=== PATIENT | male | born 1950 | race Caucasian/White ===

== ENCOUNTER 2018-05-21 15:54 | Observation (INO) | payer MEDICARE ==
[~2018-05-21] VITALS: Ht 182.9 cm; Wt 67.7 kg
--- NOTE | ~2018-05-21 | MORECARE ---
CASE MANAGEMENT DISCHARGE SUMMARY PATIENT: TAVON JEAN UNIT: [id number] ADM DATE: 05/21/18 AGE: 67 : 51 SEX: M ROOM/BED: D.2224 AUTHOR: CÉSAR SHIELDS PHYSICIAN: REFERRING PHYSICIAN: KEELY WATKINS MD DATE OF SERVICE: 05/22/18 Discharge Plan Patient Name: TAVON JEAN [facility] [facility] 1950 Planned Disposition: Anticipated Discharge Date: Discharge Date: Expected LOS: Initial Reviewer: [email or web address] Initial Review Date: 05/21/2018 Generated: 05/22/18 4:58 pm Patient Name: TAVON JEAN Page [id number] at 1558 All edits/amendments must be made on the electronic document DICTATION DATE: 05/22/181556 RUBY DEVELOPER: JOHNNIE 05/22/181556 RPT#: [id number] DC DATE: STATUS: ADM IN [facility] [address] [place] [address] END OF REPORT
--- NOTE | ~2018-05-21 | MORECARE ---
CASE MANAGEMENT DISCHARGE SUMMARY PATIENT: TAVON JEAN UNIT: [id number] ADM DATE: 05/21/18 AGE: 67 : 51 SEX: M ROOM/BED: D.2224 AUTHOR: CÉSAR SHIELDS PHYSICIAN: REFERRING PHYSICIAN: KEELY WATKINS MD DATE OF SERVICE: 05/23/18 Discharge Plan Patient Name: TAVON JEAN [facility] [facility] 1950 Planned Disposition: Anticipated Discharge Date: Discharge Date: Expected LOS: Initial Reviewer: [email or web address] Initial Review Date: 05/21/2018 Generated: 05/23/18 3:59 pm Last DP export: 05/22/18 2:58 Patient Name: TAVON JEAN Page [id number] at 1455 All edits/amendments must be made on the electronic document DICTATION DATE: 05/23/181457 PAPERBACK MACHINE OPERATOR: JOHNNIE 05/23/181457 RPT#: [id number] DC DATE: STATUS: ADM IN [facility] [address] [place] [address] END OF REPORT
--- NOTE | ~2018-05-21 | CN ---
PATIENT NAME:TAVON QUEEN MEDICAL RECORD: [id number] : 52 LOCATION:D.MS [place]24 ADMIT DATE: 05/21/18 ACCOUNT: [id number] CONSULTING PHYSICIAN: LUCY ESPOSITO MD REFERRING PHYSICIAN: KEELY WATKINS MD DATE OF CONSULTATION: 05/23/2018 HISTORY: Mr. Queen is a 67-year-old male, on aspirin and Plavix. He was admitted a couple of days ago with epistaxis. His nose was packed and the packing was removed today, May 23, and he has been having bleeding from the left side of the nose since the packing was removed. I was asked to see him for that. PHYSICAL EXAMINATION: GENERAL: He is healthy appearing, alert, good voice. FACE: Normal and symmetric. EYES: Sclerae and conjunctivae are normal. ORAL CAVITY AND OROPHARYNX: Blood running down the posterior pharynx. NECK: No masses. No adenopathy. NOSE: On exam of his nose, right side looks good. He has some packing in the left side that was just something he had placed there. I removed that and suctioned his nose out. No obvious source of bleeding there, but he was bleeding from inside the nose. It was hard to tell if it was from the packing that had been placed in his turbinate or if it was the original source. It did not seem to be high up on the septum, possibly low in the septum posteriorly or the inferior turbinate. At this point, with epistaxis failed after packing and not being visible, I plan to take him to the OR for cautery and/or packing of the nose to identify the problem. During that process, he stopped bleeding by the time he got to the holding area. He had not been bleeding for a couple hours and anesthesia felt with his cardiac status, he was on hospice for severe cardiac problems, did not feel like it was warranted to take him to the OR when his bleeding had stopped spontaneously. So, we talked to the patient and talked to the anesthesia, a long discussion and decided it may be best just to leave things alone for now, considering decreasing his anticoagulation for few days, and just deal with the bleeding if it should start again. There is a good chance that it may not because it tapered off fairly quickly after the packing was removed and it seemed like the bleeding could have been just from the packing itself in his anticoagulated status and possibly original problem had resolved, so we sent him back to the floor, to his room. I talked to his brother. TRANSINT:[id number] Voice Confirmation ID: [id number] DOCUMENT ID: [id number] LUCY ESPOSITO MD at 1821 CC: [id number] DICTATION DATE: 05/23/18 1333 CANAL EQUIPMENT MECHANIC: 05/23/18 1452 DIS IN 05/24/18 [id number] [place] [address]
--- NOTE | ~2018-05-21 | MORECARE ---
CASE MANAGEMENT DISCHARGE SUMMARY PATIENT: TAVON JEAN UNIT: [id number] ADM DATE: 05/21/18 AGE: 67 : 51 SEX: M ROOM/BED: D.2224 AUTHOR: CÉSAR SHIELDS PHYSICIAN: REFERRING PHYSICIAN: KEELY WATKINS MD DATE OF SERVICE: 05/25/18 Discharge Plan Patient Name: TAVON JEAN Facility[facility]:[place] : 1950 Planned Disposition: Anticipated Discharge Date: Discharge Date: 05/24/2018 Expected LOS: Initial Reviewer: [email or web address] Initial Review Date: 05/21/2018 Generated: 05/25/18 12:48 pm Comments DCP- Discharge Planning Updated by [email or web address]: Jennifer Brown on 05/24/18 9:[address] Received discharge orders. CM called [facility] and spoke to [place]. Informed he is being discharged home today with hospice. Clinical/DC orders faxed. States his family will take him home. CM will continue to follow and assist with discharge planning/needs. DCP- Discharge Planning Updated by [email or web address]: Jennifer Brown on 05/23/18 2:[address] Patient Name: TAVON JEAN Admission Status: ER Accout number: [id number] Admission Date: 05-21-2018 : 1950 Admission Diagnosis: Attending: KEELY WATKINS Current LOS: 2 Anticipated DC Date: Planned Disposition: Primary Insurance: [facility] MEDICARE SOLUTIONS Discharge Planning Comments: Spoke with patient regarding discharge planning, his brother (Richard) is in the room. Permission received to discuss discharge planning with brother in the room. States he lives alone. States [facility] comes weekly. States he has oxygen at home and hospice provides all his DME needs. States he plans to return home with [facility]. States his sister or brother will take him home. CM will continue to follow and assist with discharge planning/needs. [facility] sister - [phone] Richard - brother - [phone] Rn Iv Therapy: Jennifer Brown Coverage Notice Reviewer: [id number] - Jennifer Brown Notice Issued Date-Time: 05/23/2018 8:56 Notice Type: Medicare Outpatient Observation Notice Notice Delivered To: Patient Relationship to Patient: Self Fixed Income Trading Vice President Name: Delivery Method: HAND - Hand Delivered Miriam Days: Prior Verbal Notification: Recipient Understood Notice: Yes Recipient Signature: Yes Med Rec Note Co-signed by Attending: Coverage Notice Comment: YUKI explained, signed, copy given, original placed in MR Last DP export: 05/24/18 9:34 Patient Name: TAVON JEAN Page 95669 at 1148 All edits/amendments must be made on the electronic document DICTATION DATE: 05/25/18 1148 AIRPLANE FLIGHT ATTENDANT SUPERVISOR: JOHNNIE 05/25/18 1148 RPT#: [id number] DC DATE:05/24/18 STATUS: DIS IN [facility] [address] [place] [address] END OF REPORT
--- NOTE | ~2018-05-21 | MORECARE ---
CASE MANAGEMENT DISCHARGE SUMMARY PATIENT: TAVON JEAN UNIT: [id number] ADM DATE: 05/21/18 AGE: 67 : 51 SEX: M ROOM/BED: D.2224 AUTHOR: CÉSAR SHIELDS PHYSICIAN: REFERRING PHYSICIAN: KEELY WATKINS MD DATE OF SERVICE: 05/23/18 Discharge Plan Patient Name: TAVON JEAN Facility: [facility]:[place] : 1950 Planned Disposition: Anticipated Discharge Date: Discharge Date: Expected LOS: Initial Reviewer: [email or web address] Initial Review Date: 05/21/2018 Generated: 05/23/18 4:08 pm Comments DCP- Discharge Planning Updated by [email or web address]: Jennifer Brown on 05/23/18 2:[address] Patient Name: TAVON JEAN Admission Status: ER Accout number: [id number] Admission Date: 05-21-2018 : 1950 Admission Diagnosis: Attending: KEELY WATKINS Current LOS: 2 Anticipated DC Date: Planned Disposition: Primary Insurance: [facility] MEDICARE SOLUTIONS Discharge Planning Comments: Spoke with patient regarding discharge planning, his brother (Richard) is in the room. Permission received to discuss discharge planning with brother in the room. States he lives alone. States [facility] comes weekly. States he has oxygen at home and hospice provides all his DME needs. States he plans to return home with [facility]. States his sister or brother will take him home. will continue to follow and assist with discharge planning/needs. [facility] sister - [phone] Richard brother - [phone] Hydrogen Plant Operations Manager: Jennifer Brown Last DP export: 05/23/18 1:59 Patient Name: TAVON JEAN Page 76197 at 1508 All edits/amendments must be made on the electronic document DICTATION DATE: 05/23/18 150 HEALTH PRACTICE MANAGER: JOHNNIE 05/23/18 1507 RPT#: [id number] DC DATE: STATUS: ADM IN [facility] [address] [place] [address] END OF REPORT
--- NOTE | ~2018-05-21 | MORECARE ---
CASE MANAGEMENT DISCHARGE SUMMARY PATIENT: TAVON JEAN UNIT: [id number] ADM DATE: 05/21/18 AGE: 67 : 52 SEX: M ROOM/BED: D.2224 AUTHOR: CÉSAR SHIELDS PHYSICIAN: REFERRING PHYSICIAN: KEELY WATKINS MD DATE OF SERVICE: 05/24/18 Discharge Plan Patient Name: TAVON JEAN Facility: [facility]:[place] : 1950 Planned Disposition: Anticipated Discharge Date: Discharge Date: Expected LOS: Initial Reviewer: [email or web address] Initial Review Date: 05/21/2018 Generated: 05/24/18 11:34 am Comments DCP- Discharge Planning Updated by [email or web address]: Jennifer Brown on 05/24/18 9:[address] Received discharge orders. CM called [facility] and spoke to [place]. Informed he is being discharged home today with hospice. Clinical/DC orders faxed. States his family will take him home. CM will continue to follow and assist with discharge planning/needs. DCP- Discharge Planning Updated by [email or web address]: Jennifer Brown on 05/23/18 2:[address] Patient Name: TAVON JEAN Admission Status: ER Accout number: [id number] Admission Date: 05-21-2018 : 1950 Admission Diagnosis: Attending: KEELY WATKINS Current LOS: 2 Anticipated DC Date: Planned Disposition: Primary Insurance: [facility] MEDICARE SOLUTIONS Discharge Planning Comments: Spoke with patient regarding discharge planning, his brother (Richard) is in the room. Permission received to discuss discharge planning with brother in the room. States he lives alone. States [facility] comes weekly. States he has oxygen at home and hospice provides all his DME needs. States he plans to return home with [facility]. States his sister or brother will take him home. CM will continue to follow and assist with discharge planning/needs. [facility] sister - [phone] Richard - brother - [phone] Medical Scientist: Jennifer Brown External Providers External Provider: [facility](provides inp Next Contact Date: Service Request Date: Service Type: Resolution: Reviewer: Comments: Coverage Notice Reviewer: [email or web address] - Jennifer Brown Notice Issued Date-Time: 05/23/2018 8:56 Notice Type: Medicare Outpatient Observation Notice Notice Delivered To: Patient Relationship to Patient: Self Negative Checker Name: Delivery Method: HAND - Hand Delivered Miriam Days: Prior Verbal Notification: Recipient Understood Notice: Yes Recipient Signature: Yes Med Rec Note Co-signed by Attending: Coverage Notice Comment: YUKI explained, signed, copy given, original placed in MR Last DP export: 05/23/18 2:08 Patient Name: TAVON JEAN Page 70914 at 1034 All edits/amendments must be made on the electronic document DICTATION DATE: 05/24/18 1033 ZOO CARETAKER: JOHNNIE 05/24/18 1033 RPT#: [id number] DC DATE: STATUS: ADM IN [facility] [address] [place] [address] END OF REPORT
[2018-05-21] MEDS ORDERED: COREG6.25 MG PO (15:58)
[2018-05-21] MEDS ORDERED: ASPIRIN81 MG PO (15:58)
[2018-05-21] MEDS ORDERED: LIPITOR40 MG PO (15:58)
[2018-05-21] MEDS ORDERED: PLAVIX75 MG PO (15:59)
[2018-05-21] MEDS ORDERED: MUCINEX DM ER1 EAC1 PO (15:59)
[2018-05-21] MEDS ORDERED: LASIX80 MG PO (15:59)
[2018-05-21] MEDS ORDERED: PEPCID AC20 MG PO (15:59)
[2018-05-21] MEDS ORDERED: NITROQUICK0.4 MG SL (16:00)
[2018-05-21] MEDS ORDERED: DULERA 200 MCG8.8 GM INH (16:00)
[2018-05-21] MEDS ORDERED: PROTONIX20 MG PO (16:00)
[2018-05-21] MEDS ORDERED: K-TAB10 MEQ PO (16:01)
[2018-05-21] MEDS ORDERED: PREDNISONE20 MG PO (16:01)
[2018-05-21] MEDS ORDERED: COMBIVENT RESPIM4 GM INH (16:01)
[2018-05-21] MEDS ORDERED: RENVELA800 MG PO (16:02)
[2018-05-21] MEDS ORDERED: MORPHINE SULFAT30 M4 PO (16:03)
[2018-05-21] MEDS ORDERED: MUCINEX600 MG PO (16:04)
[2018-05-21] MEDS ORDERED: ZPAK PO (16:04)
[2018-05-21 17:21] LABS: BASOPHILS 0.6 % (0-2); EOSINOPHILS 8.2 % (0-7); HEMATOCRIT 36.7 % (42.0-54.0); HEMOGLOBIN 12.1 g/dL (13.5-17.5); IMMATURE GRANULOCYTES 0.2 % (0-5); LYMPHOCYTES 21.1 % (15-50); MONOCYTES 7.2 % (2-11); NEUTROPHILS 62.7 % (40-80); PLATELET COUNT 228 10x3/uL (130-400); RBC 4.17 10x6/uL (4.20-6.10); RDW 15.6 % (11.5-14.5)
[2018-05-21 17:31] LABS: APTT 29.4 SECONDS (22.8-39.4)
[2018-05-21 17:34] LABS: INR 1.13 (0.85-1.17); PROTIME 14.1 SECONDS (11.6-15.0)
[2018-05-21 17:41] LABS: ALBUMIN 3.4 g/dL (3.4-5.0); ANION GAP 14.1 mmol/L (8-16); BILIRUBIN - TOTAL 0.62 mg/dL (0.2-1.3); CALCIUM 9.4 mg/dL (8.5-10.1); CARBON DIOXIDE 29.5 mmol/L (21.0-32.0); CREATININE - SERUM 1.6 mg/dL (0.6-1.3); POTASSIUM - SERUM 3.6 mmol/L (3.5-5.1); PROTEIN - SERUM 8.1 g/dL (6.4-8.2)
[2018-05-21 20:05] VITALS: BP 133/82
[2018-05-21 22:06] VITALS: BP 133/82; BMI 20.2
[2018-05-22 05:25] VITALS: BP 113/69
[2018-05-22 08:24] VITALS: BP 109/64
[2018-05-22 14:21] VITALS: BP 141/69
[2018-05-22 16:58] LABS: HEMATOCRIT 35.6 % (42.0-54.0); HEMOGLOBIN 11.7 g/dL (13.5-17.5)
[2018-05-22 20:36] VITALS: BP 122/75
[2018-05-22 21:01] VITALS: Ht 182.9 cm; Wt 67.7 kg
[2018-05-23] VITALS: BP 102/64
[2018-05-23 06:40] VITALS: BP 112/72
[2018-05-23 07:43] VITALS: BP 107/67
[2018-05-23 11:44] VITALS: BP 116/66
[2018-05-23 16:29] LABS: BASOPHILS 0.3 % (0-2); EOSINOPHILS 4.9 % (0-7); HEMATOCRIT 33.3 % (42.0-54.0); IMMATURE GRANULOCYTES 0.2 % (0-5); LYMPHOCYTES 18.6 % (15-50); MCH 29.3 pg (26.0-34.0); MCV 88.8 fL (80.0-100.0); MEAN PLATELET VOLUME 9.9 fL (7.4-10.4); MONOCYTES 5.6 % (2-11); NEUTROPHILS 70.4 % (40-80); RBC 3.75 10x6/uL (4.20-6.10); RDW 15.7 % (11.5-14.5); WBC 5.9 10x3/uL (4.8-10.8)
[2018-05-23 16:30] LABS: PLATELET COUNT 180 10x3/uL (130-400)
[2018-05-23 16:32] VITALS: BP 115/75
[2018-05-23 16:37] LABS: APTT 27.5 SECONDS (22.8-39.4); INR 1.17 (0.85-1.17); PROTIME 14.5 SECONDS (11.6-15.0)
[2018-05-23 16:47] LABS: ALBUMIN 3.1 g/dL (3.4-5.0); ANION GAP 12.8 mmol/L (8-16); BILIRUBIN - TOTAL 0.7 mg/dL (0.2-1.3); CALCIUM 8.9 mg/dL (8.5-10.1); CARBON DIOXIDE 29.5 mmol/L (21.0-32.0); CREATININE - SERUM 1.3 mg/dL (0.6-1.3); PROTEIN - SERUM 6.8 g/dL (6.4-8.2)
[2018-05-23 16:49] LABS: POTASSIUM - SERUM 4.3 mmol/L (3.5-5.1)
[2018-05-23 21:17] VITALS: BP 119/82
[2018-05-24 05:04] VITALS: BP 104/64
[2018-05-24 08:18] VITALS: BP 108/67
== END 2018-05-24 12:59 | disposition hospice, home (50) ==
LOC: D.ER 15:54 → D.MS 18:20 → D.EDHOLD 18:20 → OBSVTIME 18:21 → D.MS 18:23
PROVIDERS: Family Medicine; Legal Medicine
DX: R04.0 Epistaxis (principal); I10 Essential (primary) hypertension; J44.9 Chronic obstructive pulmonary disease, unspecified; N28.9 Disorder of kidney and ureter, unspecified; I25.10 Atherosclerotic heart disease of native coronary artery without angina pectoris